=== PATIENT | female | born 1940 | race Caucasian/White ===

== ENCOUNTER 2023-03-26 19:10 | Inpatient (IN) | payer BC ==
[~2023-03-26] VITALS: Ht 160 cm; Wt 67.6 kg
[~2023-03-26 19:10] MED LIST: HYDR-3919 PO; HYDR25TA4 PO; OMEP40CA20 PO
[2023-03-26 19:18] VITALS: BP_SYST 169; PULSE 68; RESP 18; TEMP 98.3; O2SAT 96
[2023-03-26] MEDS ORDERED: ATEN-41 PO (19:27)
[2023-03-26] MEDS ORDERED: LIP10 PO (19:27)
[2023-03-26] MEDS ORDERED: OMEP40CA20 PO (19:27)
[2023-03-26] MEDS ORDERED: HYDR25TA4 PO (19:28)
[2023-03-26] MEDS ORDERED: iohexoL 350 mgI/mL, 100 ML INFUS..BTL IV ONE (19:55)
[2023-03-26 20:09] LABS: BASOPHILS # (AUTO) 0.1 K/uL (0.0-0.2); BASOPHILS % (AUTO) 1.1 % (0.0-2.0); EOSINOPHILS # (AUTO) 0.2 K/uL (0.0-0.4); EOSINOPHILS % (AUTO) 3.4 % (0.0-4.0); HEMATOCRIT 34.6 % (36-48); HEMOGLOBIN 11.5 g/dL (12.0-16.0); LYMPHOCYTES # (AUTO) 1.9 K/uL (1.0-5.5); LYMPHOCYTES % (AUTO) 38.5 % (20.5-51.5); MEAN CORPUSCULAR HEMOGLOBIN 28 pg (27-31); MEAN CORPUSCULAR HGB CONC 33 % (32-36); MEAN CORPUSCULAR VOLUME 84 fL (79.0-98.0); MONOCYTES # (AUTO) 0.4 K/uL (0.0-1.0); MONOCYTES % (AUTO) 8.2 % (1.7-9.3); NEUTROPHILS # (AUTO) 2.5 K/uL (1.8-7.7); NEUTROPHILS % (AUTO) 48.8 % (40.0-70.0); PLATELET COUNT (AUTO) 248 K/uL (130-430); RED BLOOD CELL COUNT(AUTO) 4.13 MIL/uL (4.2-6.2); RED CELL DISTRIBUTION WIDTH 14.7 % (9.0-15.0)
[2023-03-26 20:29] LABS: ALANINE AMINOTRANSFERASE 17 U/L (12-78); ALBUMIN 3.8 g/dL (3.4-4.8); ANION GAP 7 (5-15); ASPARTATE AMINOTRANSFERASE 27 U/L (10-37); CALCIUM 9.2 mg/dL (8.4-11.0); CHLORIDE 102 mmol/L (98-107); CREATININE 1.08 mg/dL (0.55-1.30); GLUCOSE 107 mg/dL (74-106); TOTAL BILIRUBIN 0.3 mg/dL (0.0-1.0); UREA NITROGEN, BLOOD 25 mg/dL (8-21)
[2023-03-26] MEDS ORDERED: ASPIRIN 81 MG TAB.CHEW PO ONE (21:00)
[2023-03-26] MEDS ORDERED: ATORVASTATIN 20 MG TABLET PO ONE (21:00)
[2023-03-26] MEDS ORDERED: CLOPIDOGREL BISULFATE 75 MG TABLET PO ONE (21:00)
[2023-03-26 21:05] LABS: CHOLESTEROL 176 mg/dL (<200); HDL CHOLESTEROL 52 mg/dL (>55); TRIGLYCERIDES 284 mg/dL (30-150)
[2023-03-26] MEDS ORDERED: ASPIRIN 81 MG TAB.CHEW ONE (21:24)
[2023-03-26 23:33] VITALS: O2SAT 97
[2023-03-26 23:47] VITALS: BP_SYST 169; PULSE 65; RESP 18; TEMP 97.8; O2SAT 96
[2023-03-27] LABS: BILIRUBIN,URINE NEGATIVE (NEGATIVE); BLOOD, URINE 1+ (NEGATIVE); COLOR,URINE YELLOW (YELLOW); GLUCOSE,URINE NEGATIVE (NEGATIVE); KETONES,URINE NEGATIVE (NEGATIVE); LEUKOCYTE ESTERASE ,URINE NEGATIVE (NEGATIVE); NITRITE, URINE NEGATIVE (NEGATIVE); PROTEIN URINE NEGATIVE (NEGATIVE); UROBILINOGEN,URINE 0.2 (0.2-1.0)
[2023-03-27 00:18] VITALS: BP_SYST 169; PULSE 61; RESP 18; TEMP 96.8; O2SAT 97
[2023-03-27 00:22] LABS: CLARITY/URINE HAZY (CLEAR)
[2023-03-27 00:23] LABS: BACTERIA,URINE None Seen /HPF (None Seen); WBC,URINE 0-3 /HPF (0-3)
[2023-03-27 09:14] VITALS: BP_SYST 152; PULSE 59; RESP 20; TEMP 96.5; O2SAT 97
[2023-03-27 11:36] VITALS: BP_SYST 151; PULSE 62; RESP 17; TEMP 97.9; O2SAT 98
[2023-03-27] MEDS ORDERED: NALOXONE HCL 0.4 MG/ML AMP (NARCAN) IVP PRN (17:00)
[2023-03-27] MEDS ORDERED: HYDROcodone/ACETAMIN 5-325 MG TAB (NORCO/ VICODIN) PO PRN (17:00)
[2023-03-27 18:18] VITALS: BP_SYST 141; PULSE 68; RESP 17; TEMP 98; O2SAT 97
[2023-03-27 20:00] VITALS: BP_SYST 159; PULSE 70; RESP 19; TEMP 96.9; O2SAT 98
[2023-03-28 03:31] VITALS: BP_SYST 136; PULSE 84; RESP 19; TEMP 96.8; O2SAT 96
[2023-03-28 04:00] VITALS: BP_SYST 140; PULSE 79; RESP 18; TEMP 97.9; O2SAT 98
[2023-03-28 07:00] VITALS: BP_SYST 141; PULSE 73; RESP 16; TEMP 97.3; O2SAT 96
[2023-03-28 09:00] VITALS: BP_SYST 141; PULSE 73; RESP 16; TEMP 97.3; O2SAT 96
[2023-03-28] MEDS ORDERED: ATORVASTATIN 10 MG TABLET PO SCH (09:00)
[2023-03-28] MEDS ORDERED: HYDROCHLOROTHIAZIDE 25 MG TABLET (HCTZ) PO SCH ×2 (09:00)
[2023-03-28] MEDS ORDERED: PANTOPRAZOLE SODIUM 40 MG TAB PO SCH (09:00)
[2023-03-28] MEDS ORDERED: amLODIPine BESYLATE 5 MG TABLET PO SCH (09:00)
[2023-03-28] MEDS ORDERED: OMEPRAZOLE Non-Formulary 20 MG CAPSULE.DR PO SCH ×2 (09:00)
[2023-03-28] MEDS ORDERED: ATENOLOL 25 MG TABLET(TENORMIN) PO SCH (09:00)
[2023-03-28] MEDS ORDERED: ASPIRIN 81 MG TAB.CHEW PO SCH (09:00)
[2023-03-28 11:08] VITALS: BP_SYST 141; PULSE 64; RESP 18; TEMP 97; O2SAT 98
[2023-03-28 14:50] VITALS: BP_SYST 140; PULSE 66; RESP 16; TEMP 97.3; O2SAT 98
[2023-03-28] MEDS ORDERED: AMLO5TAB4 PO (18:02)
== END 2023-03-28 18:50 | disposition home or self-care (01) | DRG 69 ==
LOC: SED 19:10 → SMU 22:26 → OBSVTOIN 03-28 08:00
PROVIDERS: ADMIT Specialist; ATTEND Specialist
DX: G45.9 Transient cerebral ischemic attack, unspecified (principal); I10 Essential (primary) hypertension; E78.5 Hyperlipidemia, unspecified; K21.9 Gastro-esophageal reflux disease without esophagitis; Z88.0 Allergy status to penicillin; Z79.891 Long term (current) use of opiate analgesic; Z79.899 Other long term (current) drug therapy; R29.701 NIHSS score 1
CPT/HCPCS: 36415; 70450-TC; 70496; 70498; 70551; 71045; 72040-TC; 76376; 80053; 80061; 81000; 82962; 83037; 84484; 85025; 85610-TC; 85730-TC; 86886; 86900; 86901; 92610-GN; 93005; 93880; 97116-GP; 97163-GP; 99291; G0378; Q9967